=== PATIENT | female | born 1990 | race Caucasian/White ===

== ENCOUNTER 2016-12-22 23:42 | Observation (INO) | payer OTHER ==
[2016-12-23 00:09] LABS: COLOR YELLOW; LEUKOCYTE ESTERASE,URINE TRACE (NEGATIVE); NITRITE,URINE NEGATIVE (NEGATIVE)
[2016-12-23 00:16] LABS: BACTERIA 1+ /hpf (NONE SEEN); MUCUS TRACE /lpf (NONE-1+); WBC,URINE 15-25 /hpf (0-3)
[2016-12-23] MEDS ORDERED: NS 1,000 ML IV ONE ×3 (00:39→02:14)
--- NOTE | 2016-12-23 00:42 | EDPHY ---
H & P Stated Complaint: mid back pain and fever, concern for pyelo by MD consult Source: Patient Exam Limitations: No limitations - Personal History LMP (Females 10-55): 8-14 Days Ago Current Tetanus/Diphtheria Vaccine: Unsure Current Tetanus Diphtheria and Acellular Pertussis (TDAP): Unsure - Medical/Surgical History Hx Asthma: No Hx Chronic Respiratory Disease: No Hx Diabetes: No Hx Cardiac Disease: No Hx Renal Disease: No Hx Cirrhosis: No Hx Alcoholism: No Hx HIV/AIDS: No Hx Splenectomy or Spleen Trauma: No Other PMH: migraines - Social History Smoking Status: Never smoked Time Seen by Provider: 12/22/16 23:58 HPI/ROS: CHIEF COMPLAINT: fever, back pain HISTORY OF PRESENT ILLNESS: 26-year-old female presents emergency department complaining of fever, body aches and low back pain. Patient has had urinary tract infection symptoms for the past 4 days, she was called in a prescription for Macrobid by a virtual provider 2 days ago, she has taken 3 doses of this. Patient reports she continues with urinary frequency, urgency and dysuria, today she developed body aches, fevers and back pain. She denies nausea or vomiting. No diarrhea, no vaginal discharge. Patient reports since starting the Macrobid she has felt a mild tightness in her chest and feels like it is difficult to take a deep breath. She reports she thinks she has an allergy to Macrobid as she got these same symptoms the last time she took Macrobid for a urinary tract infection. Patient also reports she feels a little itchy. She denies tongue swelling, difficulty swallowing, difficulty breathing. REVIEW OF SYSTEMS: A comprehensive 10 point review of systems is otherwise negative aside from elements mentioned in the history of present illness. (Justa Andre) [id number]: Re-evaluation I met with this patient evaluated her she was requesting be discharged home however heart rate is stayed 115 to 120s throughout her ER course even after 3 L of fluid she has been afebrile here T-max 37.7degrees. The low states her heart rate at 1 point was 106 she stays in the 1 teens. I did ambulate her to see if her heart rate will go up and went up to 135-140s. Given that she has ongoing tachycardia, leukocytosis, urinary tract infection and ongoing tachycardia I do have concern of further sepsis. I did discuss this with her she is agreeable to stay in observation unit overnight for gentle hydration and monitoring for ongoing tachycardia fever. Blood cultures will be pulled as well as lactic acid. Spoke with the hospitalist service Dr. Edwards agrees to admit this patient. Patient has already had 3 L in the emergency room Rocephin and urine cultures been sent. I have added on blood cultures and lactic acid. (Milan Lynne) - Physical Exam Exam: Physical Exam Gen: Alert and Oriented, NAD HEENT: PERRL, moist mucous membranes, no tongue swelling, uvula midline NECK: no meningismus CV: Tachycardic rate and regular rhythm PULM: CTAB, no wheezes ABDOMEN: soft, suprapubic tenderness to palpation, BS present BACK: Mild bilateral CVA tenderness NEURO: Neurologically grossly intact EXTREMITIES: normal appearing SKIN: Erythematous blanchable rash to back PSYCH: answers questions appropriately. (Justa Andre) Constitutional: Initial Vital Signs Temperature (C) 37.7 C 12/22/16 23:49 Heart Rate 130 H 12/22/16 23:49 Respiratory Rate 18 12/22/16 23:49 Blood Pressure 111/71 12/22/16 23:49 O2 Sat (%) 95 12/22/16 23:49 O2 Delivery Mode Room Air Allergies/Adverse Reactions: nitrofurantoin [From Macrobid] Allergy (Verified 12/23/16 03:28) Home Medications: Medication Instructions Recorded Citalopram 12/22/16 Flonase Nasal [place] 12/22/16 MIRENA 12/22/16 Macrobid 100 mg Capsule BID 12/22/16 Cephalexin [Keflex] 500 mg PO BID 8 Days 12/23/16 Medical Decision Making ED Course/Re-evaluation: IV established, CBC, chemistry panel, obtained, urinalysis shows 15- 25 WBCs and 5-10 RBCs, urine cultures pending. Patient meets SIRS criteria with a temperature of 37.7degrees and a heart rate of 130. Patient has an elevated white blood cell count of 16,000 with a left shift, normal chemistry panel with normal kidney functions. I will treat the patient for a pyelonephritis. She will get 1 g of Rocephin IV, 1 L of normal saline and Tylenol. 2am. Rocephin infused. Pt receiving 2nd liter of normal saline. She continues with a heart rate of 113. Temperature down to 36.9. Patient reports she feels good. She denies nausea or vomiting, body aches have improved. Report passed on to Dr. Lynne at the end of my shift. Patient receiving 2nd L of normal saline, we will watch for her heart rate to come down. (Justa Andre) Care Turn Over: 2am-Report passed on to Dr. Lynne at the end of my shift (Justa Andre) - Data Points Laboratory Results: Laboratory Results 12/23/16 00:45 12/23/16 00:45 12/23/16 12/23/16 12/23/16 00:45 00:45 00:45 WBC 16.02 10^3/uL H 10^3/uL (3.80-9.50) RBC 4.86 10^6/uL 10^6/uL (4.18-5.33) Hgb 15.1 g/dL g/dL (12.6-16.3) Hct 42.6 % % (38.0-47.0) MCV 87.7 fL fL (81.5-99.8) MCH 31.1 pg pg (27.9-34.1) MCHC 35.4 g/dL g/dL (32.4-36.7) RDW 12.3 % % (11.5-15.2) Plt Count 210 10^3/uL 10^3/uL (150-400) MPV 11.7 fL fL (8.7-11.7) Neut % (Auto) 83.9 % H % (39.3-74.2) Lymph % (Auto) 8.0 % L % (15.0-45.0) [place] % (Auto) 5.6 % % (4.5-13.0) Eos % (Auto) 1.6 % % (0.6-7.6) Baso % (Auto) 0.2 % L % (0.3-1.7) Nucleat RBC Rel Count 0.0 % % (0.0-0.2) Absolute Neuts (auto) 13.45 10^3/uL H 10^3/uL (1.70-6.50) Absolute Lymphs (auto) 1.28 10^3/uL 10^3/uL (1.00-3.00) Absolute Monos (auto) 0.90 10^3/uL H 10^3/uL (0.30-0.80) Absolute Eos (auto) 0.25 10^3/uL 10^3/uL (0.03-0.40) Absolute Basos (auto) 0.03 10^3/uL 10^3/uL (0.02-0.10) Absolute Nucleated RBC 0.00 10^3/uL 10^3/uL (0-0.01) Immature Gran % 0.7 % % (0.0-1.1) Immature Gran # 0.11 10^3/uL H 10^3/uL (0.00-0.10) Sodium 142 mEq/L mEq/L (134-144) Potassium 3.9 mEq/L mEq/L (3.5-5.2) Chloride 105 mEq/L mEq/L (97-110) Carbon Dioxide 23 mEq/l mEq/l (22-31) Anion Gap 14 mEq/L mEq/L (8-16) BUN 9 mg/dL mg/dL (7-23) Creatinine 0.6 mg/dL mg/dL (0.6-1.0) Estimated GFR > 60 Glucose 104 mg/dL H mg/dL (70-100) Calcium 9.4 mg/dL mg/dL (8.5-10.4) Beta HCG, Qual NEGATIVE Urine Color Urine Appearance Urine pH Ur Specific [place] Urine Protein Urine Ketones Urine Blood Urine Nitrate Urine Bilirubin Urine Urobilinogen Ur Leukocyte Esterase Urine RBC Urine WBC Ur Epithelial Cells Urine Bacteria Urine Mucus Ur Culture Indicated? Urine Glucose 12/23/16 00:00 WBC RBC Hgb Hct MCV MCH MCHC RDW Plt Count MPV Neut % (Auto) Lymph % (Auto) [place] % (Auto) Eos % (Auto) Baso % (Auto) Nucleat RBC Rel Count Absolute Neuts (auto) Absolute Lymphs (auto) Absolute Monos (auto) Absolute Eos (auto) Absolute Basos (auto) Absolute Nucleated RBC Immature Gran % Immature Gran # Sodium Potassium Chloride Carbon Dioxide Anion Gap BUN Creatinine Estimated GFR Glucose Calcium Beta HCG, Qual Urine Color YELLOW Urine Appearance HAZY Urine pH 9.0 H (5.0-7.5) Ur Specific [place] 1.015 (1.002-1.030) Urine Protein NEGATIVE (NEGATIVE) Urine Ketones NEGATIVE (NEGATIVE) Urine Blood NEGATIVE (NEGATIVE) Urine Nitrate NEGATIVE (NEGATIVE) Urine Bilirubin NEGATIVE (NEGATIVE) Urine Urobilinogen NEGATIVE EU EU (0.2-1.0) Ur Leukocyte Esterase TRACE H (NEGATIVE) Urine RBC 5-10 /hpf H /hpf (0-3) Urine WBC 15-25 /hpf H /hpf (0-3) Ur Epithelial Cells 1+ /lpf /lpf (NONE-1+) Urine Bacteria 1+ /hpf H /hpf (NONE SEEN) Urine Mucus TRACE /lpf /lpf (NONE-1+) Ur Culture Indicated? INDICATED H (NI) Urine Glucose NEGATIVE (NEGATIVE) Medications Given: Discontinued Medications Acetaminophen (Tylenol) 650 mg PO EDNOW ONE Stop: 12/23/16 00:46 Last Admin: 12/23/16 00:53 Dose: 650 mg Sodium Chloride (Ns) 1,000 mls @ 0 mls/hr IV ONCE ONE PRN Reason: Wide Open Stop: 12/23/16 00:40 Last Admin: 12/23/16 00:49 Dose: 1,000 mls Ceftriaxone Sodium/Dextrose (Rocephin 1 Gm (Premix)) 50 mls @ 100 mls/hr IV EDNOW ONE PRN Reason: Protocol Stop: 12/23/16 01:44 Last Admin: 12/23/16 01:15 Dose: 50 mls Sodium Chloride (Ns) 1,000 mls @ 0 mls/hr IV ONCE ONE PRN Reason: Wide Open Stop: 12/23/16 01:38 Last Admin: 12/23/16 01:37 Dose: 1,000 mls Sodium Chloride (Ns) 1,000 mls @ 0 mls/hr IV ONCE ONE PRN Reason: Wide Open Stop: 12/23/16 02:15 Last Admin: 12/23/16 02:40 Dose: 1,000 mls Ibuprofen (Motrin) 600 mg PO EDNOW ONE Stop: 12/23/16 00:46 Last Admin: 12/23/16 00:53 Dose: 600 mg Departure - Departure Disposition: [facility] Acute Clinical Impression: Acute pyelonephritis, Tachycardia Condition: Good Instructions: Cephalexin (By mouth), Kidney Infection (ED) Additional Instructions: Take 500 mg of Keflex twice daily for 7 days. Take 600 mg of ibuprofen every 8 hours with food for 3-5 days for fevers, you can also takes 650 mg of Tylenol every 8 hours, alternate these every 4 hours. Return to the emergency department for worsening symptoms, vomiting, increased pain, any other questions or concerns. Referrals: Keven Toledo MD [Medical Doctor] - As per Instructions (Primary care doctor on-call ) Prescriptions: Cephalexin [Keflex] 500 mg PO BID 8 Days
[2016-12-23] MEDS ORDERED: IBUPROFEN 600 MG TAB PO ONE (00:45)
[2016-12-23] MEDS ORDERED: ACETAMINOPHEN 325 MG TAB PO ONE (00:45)
[2016-12-23 00:59] LABS: % IMMATURE GRANULYOCYTES 0.7 % (0.0-1.1); ABSOLUTE IMMATURE GRANULOCYTES 0.11 10^3/uL (0.00-0.10); ADD DIFF? NO; ADD MORPH? NO; ADD SCAN? NO; ATYPICAL LYMPHOCYTE FLAG 10 (0-99); FRAGMENT RBC FLAG 0 (0-99); HEMATOCRIT 42.6 % (38.0-47.0); HEMOGLOBIN 15.1 g/dL (12.6-16.3); LEFT SHIFT FLG 10 (0-99); LIPEMIA HEMOLYSIS FLAG 90 (0-99); MEAN CELL HEMOGLOBIN 31.1 pg (27.9-34.1); MEAN CELL HEMOGLOBIN CONCENTR. 35.4 g/dL (32.4-36.7); MEAN CELL VOLUME 87.7 fL (81.5-99.8); MEAN PLATELET VOLUME 11.7 fL (8.7-11.7); PLATELET CLUMPS FLAG 0 (0-99); PLATELET COUNT 210 10^3/uL (150-400); RED BLOOD CELL COUNT 4.86 10^6/uL (4.18-5.33); RED CELL DISTRIBUTION WIDTH 12.3 % (11.5-15.2)
[2016-12-23 01:06] LABS: ANION GAP 14 mEq/L (8-16); CALCIUM 9.4 mg/dL (8.5-10.4); CARBON DIOXIDE 23 mEq/l (22-31); CHLORIDE 105 mEq/L (97-110); CREATININE 0.6 mg/dL (0.6-1.0); GLOMERULAR FILTRATION RATE > 60; GLUCOSE 104 mg/dL (70-100); POTASSIUM 3.9 mEq/L (3.5-5.2); SODIUM 142 mEq/L (134-144)
[2016-12-23] MEDS ORDERED: CEFTRIAXONE 1 GM/DEXTROSE/50 ML BAG IV ONE (01:15)
[2016-12-23] MEDS ORDERED: CEPHALEXIN 500MG PREPACK#4 BTL TAKEHOME ONE (01:46)
[2016-12-23] MEDS ORDERED: NS 1,000 ML IV SCH (05:30)
[2016-12-23] MEDS ORDERED: ONDANSETRON 4 MG/2 ML VIAL IVP PRN (05:30)
[2016-12-23] MEDS ORDERED: ONDANSETRON DISINTEGRATING 4 MG TAB PO PRN (05:30)
[2016-12-23] MEDS ORDERED: ACETAMINOPHEN 325 MG TAB PO PRN (05:30)
[2016-12-23] MEDS ORDERED: oxyCODONE IR 5 MG TAB PO PRN (05:30)
[2016-12-23] MEDS ORDERED: PROMETHAZINE HCL 25 MG TAB PO PRN (05:30)
[2016-12-23 06:11] LABS: HEMATOCRIT 36.2 % (38.0-47.0); HEMOGLOBIN 12.5 g/dL (12.6-16.3); MEAN CELL HEMOGLOBIN 30.1 pg (27.9-34.1); MEAN CELL HEMOGLOBIN CONCENTR. 34.5 g/dL (32.4-36.7); MEAN CELL VOLUME 87.2 fL (81.5-99.8); RED BLOOD CELL COUNT 4.15 10^6/uL (4.18-5.33); RED CELL DISTRIBUTION WIDTH 12.4 % (11.5-15.2)
[2016-12-23] MEDS ORDERED: PHENAZOPYRIDINE HCL 100 MG TAB PO PRN (06:58)
--- NOTE | 2016-12-23 07:02 | PDEACUHP ---
History and Physical - Chief Complaint urinary symptoms, flank pain, fever - History of Present Illness 26 yo F with PMH of atypical migraine presenting with 2 days of urinary sxs including urgency, frequency and burning with urination progressing to now involve flank pain and fever. She was initially diagnosed with a suspected UTI by a virtual MD and started on macrobid. She had taken 2 doses of macrobid yesterday, and noted that despite that she was having worsening sxs, as above. She notified her virtual MD who urged her to be seen in ER for possible pyelo. She notes that she had changes in her urine, including cloudy and then blood tinged urine. She has had UTIs a couple of times in her life previously, but never with associated fever or flank pain. She was noted to be continuously tachycardic in the ER and therefore was kept overnight for observation, given that tachycardia failed to improve after 3L of NS. History Information - Allergies/Home Medication List Allergies/Adverse Reactions: nitrofurantoin [From Macrobid] Allergy (Verified 12/23/16 03:28) Home Medications: Citalopram 12/22/16 [Last Taken Unknown] Flonase Nasal [place] 12/22/16 [Last Taken Unknown] MIRENA 12/22/16 [Last Taken Unknown] Macrobid 100 mg Capsule BID 12/22/16 [Last Taken Unknown] I have personally reviewed and updated: family history, medical history, social history, surgical history - Past Medical History migraines - Surgical History Reports: no pertinent surgical hx - Family History Positive for: non-pertinent Additional family history: some more distant family members with diabetes and cancer, not immediate family - Social History Smoking Status: Never smoked Alcohol Use: Occasionally Drug Use: None Review of Systems ROS: 10pt was reviewed & negative except for what was stated in HPI & below Physical Exam Temp Pulse Resp BP Pulse Ox 36.9 C 98 16 112/63 97 12/23/16 04:27 12/23/16 04:27 12/23/16 04:27 12/23/16 04:27 12/23/16 04:27 Constitutional: no apparent distress, appears nourished Eyes: PERRL Ears, Nose, Mouth, Throat: moist mucous membranes Cardiovascular: regular rate and rhythym, no murmur, rub, or gallop Respiratory: no respiratory distress, no rales or rhonchi Gastrointestinal: normoactive bowel sounds, soft, non-tender abdomen, No tenderness Genitourinary: no bladder fullness, no bladder tenderness Skin: warm, normal color Musculoskeletal: No asymmetric calves, No muscular tenderness Neurologic: AAOx3 Psychiatric: interacting appropriately, not anxious, not encephalopathic Lab Data & Imaging Review 12/23/16 06:05 12/23/16 00:45 WBC 12.83 10^3/uL (3.80-9.50) H 12/23/16 06:05 RBC 4.15 10^6/uL (4.18-5.33) L 12/23/16 06:05 Hgb 12.5 g/dL (12.6-16.3) L 12/23/16 06:05 Hct 36.2 % (38.0-47.0) L 12/23/16 06:05 MCV 87.2 fL (81.5-99.8) 12/23/16 06:05 MCH 30.1 pg (27.9-34.1) 12/23/16 06:05 MCHC 34.5 g/dL (32.4-36.7) 12/23/16 06:05 RDW 12.4 % (11.5-15.2) 12/23/16 06:05 Plt Count 168 10^3/uL (150-400) 12/23/16 06:05 MPV 11.7 fL (8.7-11.7) 12/23/16 00:45 Neut % (Auto) 83.9 % (39.3-74.2) H 12/23/16 00:45 Lymph % (Auto) 8.0 % (15.0-45.0) L 12/23/16 00:45 [place] % (Auto) 5.6 % (4.5-13.0) 12/23/16 00:45 Eos % (Auto) 1.6 % (0.6-7.6) 12/23/16 00:45 Baso % (Auto) 0.2 % (0.3-1.7) L 12/23/16 00:45 Nucleat RBC Rel Count 0.0 % (0.0-0.2) 12/23/16 00:45 Absolute Neuts (auto) 13.45 10^3/uL (1.70-6.50) H 12/23/16 00:45 Absolute Lymphs (auto) 1.28 10^3/uL (1.00-3.00) 12/23/16 00:45 Absolute Monos (auto) 0.90 10^3/uL (0.30-0.80) H 12/23/16 00:45 Absolute Eos (auto) 0.25 10^3/uL (0.03-0.40) 12/23/16 00:45 Absolute Basos (auto) 0.03 10^3/uL (0.02-0.10) 12/23/16 00:45 Absolute Nucleated RBC 0.00 10^3/uL (0-0.01) 12/23/16 00:45 Immature Gran % 0.7 % (0.0-1.1) 12/23/16 00:45 Immature Gran # 0.11 10^3/uL (0.00-0.10) H 12/23/16 00:45 VBG Lactic Acid 1.2 mmol/L (0.7-2.1) 12/23/16 03:57 Sodium 142 mEq/L (134-144) 12/23/16 00:45 Potassium 3.9 mEq/L (3.5-5.2) 12/23/16 00:45 Chloride 105 mEq/L (97-110) 12/23/16 00:45 Carbon Dioxide 23 mEq/l (22-31) 12/23/16 00:45 Anion Gap 14 mEq/L (8-16) 12/23/16 00:45 BUN 9 mg/dL (7-23) 12/23/16 00:45 Creatinine 0.6 mg/dL (0.6-1.0) 12/23/16 00:45 Estimated GFR > 60 12/23/16 00:45 Glucose 104 mg/dL (70-100) H 12/23/16 00:45 Calcium 9.4 mg/dL (8.5-10.4) 12/23/16 00:45 Beta HCG, Qual NEGATIVE 12/23/16 00:45 Urine Color YELLOW 12/23/16 00:00 Urine Appearance HAZY 12/23/16 00:00 Urine pH 9.0 (5.0-7.5) H 12/23/16 00:00 Ur Specific [place] 1.015 (1.002-1.030) 12/23/16 00:00 Urine Protein NEGATIVE (NEGATIVE) 12/23/16 00:00 Urine Ketones NEGATIVE (NEGATIVE) 12/23/16 00:00 Urine Blood NEGATIVE (NEGATIVE) 12/23/16 00:00 Urine Nitrate NEGATIVE (NEGATIVE) 12/23/16 00:00 Urine Bilirubin NEGATIVE (NEGATIVE) 12/23/16 00:00 Urine Urobilinogen NEGATIVE EU (0.2-1.0) 12/23/16 00:00 Ur Leukocyte Esterase TRACE (NEGATIVE) H 12/23/16 00:00 Urine RBC 5-10 /hpf (0-3) H 12/23/16 00:00 Urine WBC 15-25 /hpf (0-3) H 12/23/16 00:00 Ur Epithelial Cells 1+ /lpf (NONE-1+) 12/23/16 00:00 Urine Bacteria 1+ /hpf (NONE SEEN) H 12/23/16 00:00 Urine Mucus TRACE /lpf (NONE-1+) 12/23/16 00:00 Ur Culture Indicated? INDICATED (NI) H 12/23/16 00:00 Urine Glucose NEGATIVE (NEGATIVE) 12/23/16 00:00 Assessment & Plan Assessment: Acute pyelonephritis (Acute) Tachycardia (Acute) 26 yo F with PMH of migraines presenting with pyelonephritis # pyelonephritis: with UTI initially diagnosed 2 days ago and failing outpatient management with macrobid. Given ctx pending further culture data. Patient no longer febrile and flank pain improved # tachycardia: in setting of above and due to early sepsis with associated leukocytosis and infection, improving s/p 3L of NS but still quite tachy with ambulation, monitoring overnight off of fluids. No chest pain, no s/s of chf. Personal review and interpretation of telemetry showing sinus tach. # sepsis: as above, patient showing signs of early sepsis with tachycardia, leukocytosis and infectious source identified. Lactate wnl, no e/o end organ dysfunction. # migraines: continue citalopram when dose confirmed # dispo: observation status, likely will be ready for dc later today Patient new to my care. Old records reviewed and summarized as above. Care plan reviewed with ER physician including plans for ceftriaxone.
[2016-12-23 08:07] VITALS: TEMP 98
[2016-12-23] MEDS ORDERED: NON-FORMULARY NEW DRUG (Levonorgestrel [Mirena] 1 EACH) IY SCH (10:00)
--- NOTE | 2016-12-23 10:45 | GDS ---
[f rep st] DISCHARGE SUMMARY DISCHARGE DIAGNOSES: 1. Pyelonephritis. 2. Leukocytosis. 3. Sepsis. 4. Tachycardia. 5. Migraines. HISTORY OF PRESENT ILLNESS: A 26-year-old female with a history of atypical migraines presenting with 2 days of urinary symptoms, including urgency, frequency, and burning. She was initially diagnosed with a suspected UTI by a virtual MD and started on Macrobid. She took 2 doses yesterday and noted that she was having worsening symptoms, including flank pain and fever. She re- called the virtual MD, and they urged her to be seen for possible pyelonephritis. She also reports cloudy urine with blood. She has had prior UTIs in the past but never fever or flank pain. HOSPITAL COURSE: 1. Pyelonephritis: Failed outpatient management. Symptoms much improved with IV fluids and antibiotics here. Positive UA but culture still pending. At this point, patient wants to go home. I agreed that I will send her home on Levaquin for total 7 days abx.. I will FU with culture and will call her if abx change needed.resistant, I will call her tomorrow. 2. Tachycardia in the setting of infection. This has resolved with IV fluids. 3. Sepsis secondary to pyelonephritis, since resolved. She had improved leukocytosis, afebrile, and lactate was normal. 4. Migraines. Continue citalopram. DISPOSITION: Patient is stable for discharge. MEDICATIONS: Levaquin. I will follow up on urine culture. /[id number]/MODL MTDD
[2016-12-23 11:30] VITALS: BP 113/80; PULSE 90; RESP 14; O2SAT 96
[2016-12-23] MEDS ORDERED: CITALOPRAM 20 MG TAB PO SCH (21:00)
[2016-12-23] MEDS ORDERED: NON-FORMULARY NEW DRUG (Citalopram Hydrobromide [Celexa 10 Mg] 10 MG) PO SCH (21:00)
[2016-12-24] MEDS ORDERED: FLUTICASONE NASAL 120 SPRAYS/16 GM MDI EACHNARE SCH (09:00)
[2016-12-24] MEDS ORDERED: NON-FORMULARY NEW DRUG (Levocetirizine Dihydrochloride [Xyzal] 5 MG) PO SCH (09:00)
== END 2016-12-23 12:12 | disposition home or self-care (01) ==
LOC: F1N 12-23 04:17
PROVIDERS: ADMIT Internal Medicine; ATTEND Internal Medicine
DX: A41.9 Sepsis, unspecified organism (principal); N10 Acute pyelonephritis; Z87.440 Personal history of urinary (tract) infections; G43.909 Migraine, unspecified, not intractable, without status migrainosus
CPT/HCPCS: 96361; 96374; 99285; G0378; J0696